=== PATIENT | female | born 1935 | race Native Hawaiian/Other Pacific Islander ===

== ENCOUNTER 2023-08-02 06:14 | Outpatient (CLI) | payer OTHER ==
[~2023-08-02 06:14] MED LIST: CELEXA20 MG PO; NORCO 10/325***1 TAB PO; OMEPRAZOLE40 MG PO; PRAMIPEXOLE1 MG PO; RANI150T78 PO; REQUIP1 MG PO; SERT50TA PO; TRAZ100T PO; ZIAC PO
== END 2023-08-02 22:00 | disposition home or self-care (01) ==
LOC: LAB 06:14
PROVIDERS: ATTEND Family Medicine
DX: E11.9 Type 2 diabetes mellitus without complications (principal)
CPT/HCPCS: 36415; 83036